=== PATIENT | female | born 1950 | race Caucasian/White ===

== ENCOUNTER 2023-04-13 21:35 | Inpatient (IN) | payer MEDICARE, MEDICAID, SELFPAY ==
[2023-04-13 22:17] VITALS: BMI 28.0
[2023-04-13 22:19] VITALS: BP 149/77; PULSE 90; RESP 18; TEMP 36.6; O2SAT 97
[2023-04-14] MEDS: Acetaminophen 325 MG TABLET 650 MG PO ×2 (00:45→22:46)
[2023-04-14] MEDS: traZODone HCL 50 MG TABLET PO ×4 (00:46→22:48)
--- NOTE | 2023-04-14 01:50 | PC.ADMIT ---
Admitted these 72 years old female patient per stretcher accompanied by ambulance staff from [facility] with presenting problem of increasing paranoia, agitation,threatening others and declining her medications for 2 months. Patient arrived in the unit at 21:55h. Pt. signed the CV and oriented to the unit, room, room mate and staff. Upon admission, Pt. is alert and oriented to person, place, time and year. Memory appears intact but lacks insight to situation. Pt is pleasant on approached and cooperative w/ admission process. Pt is sometimes hyperverbal,repetitive and perseverating on her living condition that she was evicted from her living facility. Patient skin is intact w/ some skin rashes on her back. No SOB/cough noted, Abdomen soft, non tender w/ +bowel sounds in 4 quadrants, has BM this am and no edema noted. Pt denies SI/anxiety/depression/pain and feels safe in the unit. Patient has PMHx significant for Fibromyalgia, Arthrits,Lupus,Fibrocystic disease[per pt], hypertension, hyperlipidemia and Type [address] Latasha Nunn informed of the admission w/ new orders made. Pt signed the released of information papers. Pt offered her scheduled Cephalexin and klonopin but refused it. Later she was given PRN Tylenol and Trazodone and pt took it. Pt is partially med compliant. Pt maintained on 5 mins checks for safety and has an order for hospitalist consult and Juan Stephens notified. We'll continue to monitor patient.
[2023-04-14 08:32] LABS: Alanine Aminotransferase 37 U/L (0-31); Albumin Level 3.8 g/dL (3.5-5.0); Alkaline Phosphatase 73 U/L (39-117); Anion Gap 15 (12-20); Aspartate Amino Transferase 22 U/L (5-31); Bilirubin Total 0.4 mg/dL (0.0-1.0); Blood Urea Nitrogen 20 mg/dL (9-16); Calcium 9.5 mg/dL (8.4-10.2); Carbon Dioxide 22 mmol/L (22-29); Chloride 109 mmol/L (96-108); Cholesterol 172 mg/dL; Creatinine Clr Calc Pharmacy 52.9; Estimated Glomerular Filt Rate > 60; Glucose Fasting 104 mg/dL (60-99); HDL Cholesterol 34 mg/dL; LDL Cholesterol Calculated 101 mg/dl; Potassium 3.9 mmol/L (3.3-5.1); Sodium 142 mmol/L (135-145); Total Protein 6.4 g/dL (6.5-8.0); Triglycerides 188 mg/dL
[2023-04-14 08:59] VITALS: BP 119/69; PULSE 90; RESP 18; TEMP 36.3; O2SAT 96
[2023-04-14] MEDS: lisinopriL 20 MG TABLET PO (09:01)
[2023-04-14] MEDS: Atorvastatin Calcium 20 MG TABLET PO (09:01)
--- NOTE | 2023-04-14 11:56 | P.HPPS_ITS ---
HPI Date of Service: 04/14/23 Chief Complaint: F33.2 bipolar disorder with psychotic features Sources of Information: patient interviewed, chart reviewed and crisis/core team assessment reviewed HPI Subjective Notes: Section 12B Narrative: The patient is a 72-year-old female, , currently homeless since she was evicted from her assisted living facility due to behavioral disturbances, referred from [facility] since she was referred to the emergency room after revision. According to the crisis ass essment, the patient was grossly manic with psychotic symptoms elicited by paranoia, flight of ideas disorganized thought process and psychomotor agitation. There was no other collateral information at that moment, Section 12 was issued and she was transferring to this facility for psychiatric stab ilization. According to the assessment of crisis, the patient had been very busy year and on her assisted living facility. Apparently she feels that she has an advocate to other people and she accused in the kitchen and that they were giving wrote and fruit to the residents. Later on when she was redirected she fell so paranoid that she stating her room for nearly 3 months. She had been on c ompliant with medications and according to the record she was on antidepressants in the past. Later on, she was evicted due to her progression into psychosis elicited by paranoid delusions, persecutory delusions, disorganized thought process and agitation but also she presented manic symptoms elicited by flight of ideas, grandiosity and increased energy. [facility] did not have record of prior psychiatric treatment besides of the antidepressants described before. On intake interview, the patient was cooperative she wanted to be discharged and I explained her that now she is technically homeless. She was overinclussive and paraonid against the admisnitration of her [facility]. She had flight of ideas and disorganized thought process. Even though, she denies auditory hallucinations, denies suicidal or homicidal thoughts and she was able to contract for safety in the facility. At booster, she was started on Zyprexa that we are continuing here. Medical Evaluation Reviewed: Yes [facility] Narrative: HTN HLD Diabetes type 2 Dementia Family History: Unknown Social History: The patient refused to elaborate but at this moment the patient is technically homeless since she was evicted from her assisted living facility. Substance History: Denies Trauma History: Refused to elaborate Diagnostics Vital Signs (24Hr): Vital Signs - 24 hr 04/13/23 22:19 04/14/23 08:59 Temperature 98 F 97.3 F Pulse Rate 90 90 Respiratory Rate 18 18 Blood Pressure 149/77 H 119/69 Pulse Oximetry 97 96 Oxygen Delivery Method Room Air Room Air BMI result Body Mass Index 28.0 Labs 04/14/23 08:05 Labs: Laboratory Results - last 48 hr 04/14/23 08:05 Sodium 142 Potassium 3.9 Chloride 109 H Carbon Dioxide 22 Anion Gap 15 BUN 20 H Creatinine 0.83 Estim Creat Clear Calc 52.9 Estimated GFR > 60 Fasting Glucose 104 H Calcium 9.5 Total Bilirubin 0.4 AST 22 ALT 37 H Alkaline Phosphatase 73 Total Protein 6.4 L Albumin 3.8 Triglycerides 188 Cholesterol 172 LDL Cholesterol, Calc 101 HDL Cholesterol 34 Meds/Allergies Meds Home Medications Medication Instructions Recorded Confirmed Type acetaminophen 650 mg tablet 650 mg PO Q6H PRN MILD PAIN,FEVER 04/14/23 04/14/23 History atorvastatin 20 mg tablet 20 mg PO DAILY 04/14/23 04/14/23 History calcium carbonate 500 mg calcium 500 mg PO Q4-6H PRN Heartburn 04/14/23 04/14/23 History (1,250 mg) chewable tablet cephalexin 500 mg capsule 500 mg PO BID 04/14/23 04/14/23 History clonazepam 0.5 mg tablet 0.5 mg PO BID PRN Anxiety 04/14/23 04/14/23 History diclofenac sodium 1 % topical gel 2 g topical QID 04/14/23 04/14/23 History hydroxyzine HCl 50 mg tablet 50 mg PO BEDTIME PRN Itching 04/14/23 04/14/23 History lisinopril 20 mg tablet 20 mg PO DAILY 04/14/23 04/14/23 History magnesium gluconate 27 mg 27 mg PO DAILY 04/14/23 04/14/23 History magnesium (500 mg) tablet ptlezbwy-wgl-krisa acid 0.4 1 tab PO DAILY 04/14/23 04/14/23 History mg-lycopene 300 mcg-lutein 250 mcg tablet (Cerovite Senior) olanzapine 10 mg disintegrating 10 mg PO BEDTIME 04/14/23 04/14/23 History tablet olanzapine 5 mg disintegrating 5 mg PO BID PRN Anxiety 04/14/23 04/14/23 History tablet Allergies Allergies Allergy/AdvReac Type Severity Reaction Status Date / Time No Known Allergies Allergy Verified 04/13/23 22:46 Mental Status Exam Mental Status Exam Patient Appearance: Appropriate (On hospital gowns) and Unkempt Patient Orientation: Person and Situation Level of Consciousness: Awake and Restless Patient Behavior: Suspicious and Belligerent Mood Description: Withdrawn Affect Description: Constricted Patient Cognition Impaired: Yes Ability to Follow Directions: Good Speech Pattern: Clear, Rambling and Rapid Hallucinations: None Delusions: Paranoid Ideation, Grandiose and Ideas of Reference Thought Process: Incoherent, Racing and Distracted Thought Content: positive for Nar[place], positive for Poverty of Content, positive for Loose Associations and positive for Disorganized Judgement: Poor Assessment & Plan Assessment & Plan (1) Psychosis: Status: Acute Code(s): F29 - Unspecified psychosis not due to a substance or known physiological condition Plan The patient is an elderly female with a past medical history of high blood pressure, hypercholesterolemia and diabetes with an and diagnosed psychiatric illness who was evicted from the assisted living facility since she was been accusatory, paranoid and disorganized. She was rushed to the emergency room of [facility], says by crisis and transferring to this facility for psychiatric stabilization. On admission the patient remains psychotic, paranoid with flight of ideas. Plan 1. Gather collateral information. 2. We will have to filed for Section 7 and 8 if the patient does not sign the conditional voluntary. 3. Will continue Zyprexa 10 mg p.o. q.h.s. to target psychosis and mood lability. 4. Referral to Medicine and we will follow blood work. 5. Reassessment with results Patient educated on: diagnosis Reason for continued inpatient stay Substantial Risk for: inability to function, rapid decompensation and med/psych decompensation Statement Statement: I have reviewed the history and physical and performed a pertinent examination on my patient. No changes have occurred unless specified. If the History and Physical was not performed prior to admission, the Hospitalist's service will be consulted for completing the admission physical. Time Spent With Patient Time: Total time managing care of this patient today _45___ minutes.
--- NOTE | 2023-04-14 15:35 | HO.PM.IMCN ---
History of Present Illness Data of Consult Service Date: 04/14/23 Primary Care Provider: Unknown Physician HPI Reason for consult: Admission H&P Pt is a 72-year-old female with a PMH significant for?HTN, HLD, fibromyalgia, arthritis, and lupus who is admitted to [facility] with acute psychosis with paranoia, flight ideas, and disorganized thoughts after being evicted from her assisted care facility for behavioral disturbances. Medical consult for admission H&P. Pt is seen and evaluated at bedside, eating a cookie. Pt has no acute medical complaints at this time. Review of Systems Review of Systems: Pt has no acute medical complaints at this time. Yes all other systems are reviewed and are negative PMFSH Social History Household Members: None Housing: Other Housing Other:: [facility]. Do you presently have visiting nurse or other home services: No Patient Tobacco Use Status: Never used Tobacco Smoked in Last 30 Days: No e-Cigarette/Vaping Use: Never Used Use of substances other than those prescribed or required for medical reasons: No Currently Displaying Signs/Symptoms of Drug Intoxication Withdrawal: No Any prior treatment program specific to substance use: No Have you been hit, kicked, punched, or otherwise hurt by someone within the past year? If so, by whom?: No Do you feel safe in your current relationship?: No Current Relationship Is there a partner from a previous relationship who is making you feel unsafe now?: No Are you made to feel afraid or neglected: Yes ( That they want me out of there .) Spiritual Healthcare Practices: I'M a [employer] Healthcare Practices: 'I pray Advance Directives: No Advance Directives Information Provided: No Do you have thoughts of harming others: None Do you have a plan to hurt others: No Plan Recently lost weight without trying: No Eating poorly because of decreased appetite: No Nutrition Risks: No Nutritional Risk Patient : No : No Poor oral hygiene: No service: No Sexual orientation: Straight/Heterosexual Meds Allergies Allergy/AdvReac Type Severity Reaction Status Date / Time No Known Allergies Allergy Verified 04/13/23 22:46 Active Medications: Current Medications Acetaminophen (Acetaminophen 325 Mg Tablet) 650 mg PO Q6H PRN PRN Reason: Headache/Pain Mild Scale (1-3) Last Admin: 04/14/23 00:45 Dose: 650 mg Al Hydroxide/Mg Hydroxide (Magnesium Hydrox/Alum Hydrox 30 Ml Oral.Susp) 30 ml PO Q6H PRN PRN Reason: Heartburn/Nausea Atorvastatin Calcium (Atorvastatin Calcium 20 Mg Tablet) 20 mg PO DAILY [facility] Last Admin: 04/14/23 09:01 Dose: 20 mg Calcium Carbonate (Calcium Carbonate 500 Mg Tablet) 500 mg PO Q4H PRN PRN Reason: Heartburn Cephalexin HCl (Cephalexin 500 Mg Capsule) 500 mg PO Q12H [facility] Last Admin: 04/14/23 13:12 Dose: Not Given Clonazepam (Clonazepam 0.5 Mg Tablet) 0.5 mg PO BID PRN PRN Reason: Anxiety Lisinopril (Lisinopril 20 Mg Tablet) 20 mg PO DAILY [facility]; Protocol Last Admin: 04/14/23 09:01 Dose: 20 mg Magnesium Hydroxide (Milk Of Magnesia 30 Ml Oral.Susp) 30 ml PO DAILY PRN PRN Reason: Constipation Olanzapine (Olanzapine 10 Mg Tablet) 10 mg PO BEDTIME DIANA Trazodone HCl (Trazodone Hcl 50 Mg Tablet) 50 mg PO BEDTIME MRX1 PRN PRN Reason: Insomnia Last Admin: 04/14/23 02:25 Dose: 50 mg Home Medications Medication Instructions Recorded Confirmed Last Taken Type acetaminophen 650 mg tablet 650 mg PO Q6H PRN MILD PAIN,FEVER 04/14/23 04/14/23 04/04/23 11:49 History atorvastatin 20 mg tablet 20 mg PO DAILY 04/14/23 04/14/23 04/13/23 08:36 History calcium carbonate 500 mg calcium 500 mg PO Q4-6H PRN Heartburn 04/14/23 04/14/23 03/26/23 21:56 History (1,250 mg) chewable tablet cephalexin 500 mg capsule 500 mg PO BID 04/14/23 04/14/23 Unknown History clonazepam 0.5 mg tablet 0.5 mg PO BID PRN Anxiety 04/14/23 04/14/23 04/10/23 04:08 History diclofenac sodium 1 % topical gel 2 g topical QID 04/14/23 04/14/23 Unknown History hydroxyzine HCl 50 mg tablet 50 mg PO BEDTIME PRN Itching 04/14/23 04/14/23 04/12/23 01:30 History lisinopril 20 mg tablet 20 mg PO DAILY 04/14/23 04/14/23 04/13/23 08:36 History magnesium gluconate 27 mg 27 mg PO DAILY 04/14/23 04/14/23 Unknown History magnesium (500 mg) tablet drplbklz-ofi-atpkc acid 0.4 1 tab PO DAILY 04/14/23 04/14/23 Unknown History mg-lycopene 300 mcg-lutein 250 mcg tablet (Cerovite Senior) olanzapine 10 mg disintegrating 10 mg PO BEDTIME 04/14/23 04/14/23 04/13/23 21:00 History tablet olanzapine 5 mg disintegrating 5 mg PO BID PRN Anxiety 04/14/23 04/14/23 04/02/23 History tablet 1905 Physical Exam Vital Signs and Narrative: Vital Signs: Last Vital Signs Temp 97.3 F 04/14/23 08:59 Pulse 90 04/14/23 08:59 Resp 18 04/14/23 08:59 BP 119/69 04/14/23 08:59 Pulse Ox 96 04/14/23 08:59 O2 Del Method Room Air 04/14/23 08:59 BMI result Body Mass Index 28.0 General: AOx3, no acute distress Resp: CTA bilaterally CVS: S1, S2, RRR GI: +BS, NT, no distention Skin: No rash Neuro: Cranial nerves II-XII grossly intact bilaterally. Motor grossly intact bilaterally Extremities: No edema Psych: Appropriate affect Results Labs 04/14/23 08:05 Labs: Laboratory Results - last 24 hr 04/14/23 08:05 Anion Gap 15 Estim Creat Clear Calc 52.9 Estimated GFR > 60 Fasting Glucose 104 H Calcium 9.5 Total Bilirubin 0.4 AST 22 ALT 37 H Alkaline Phosphatase 73 Total Protein 6.4 L Albumin 3.8 Triglycerides 188 Cholesterol 172 LDL Cholesterol, Calc 101 HDL Cholesterol 34 Assessment and Plan (1) Routine history and physical examination of adult: Status: Acute Plan Pt is a 72-year-old female with a PMH significant for?HTN, HLD, fibromyalgia, arthritis, and lupus who is admitted to [facility] with acute psychosis with paranoia, flight ideas, and disorganized thoughts after being evicted from her assisted care facility for behavioral disturbances. Medical consult for admission H&P. Mood disorder Plan as per psychiatry HTN Continue home meds HLD Continue home meds Lupus Pt apparently recently diagnosed, not yet on meds Should follow up outpatient with PCP to establish care Thank you for allowing us to participate in the care of this patient. Signing off at this time. Please let us know if there are any acute complaints or questions. Time Spent With Patient Time: Total time managing care of this patient today ____ minutes.
[2023-04-14 18:00] VITALS: BP 137/59; PULSE 91; RESP 16; TEMP 36.4; O2SAT 98
[2023-04-14] MEDS: OLANZapine 10 MG TABLET PO (20:59)
[2023-04-15 08:50] VITALS: BP 125/60; PULSE 77; RESP 18; TEMP 36.8; O2SAT 97
[2023-04-15] MEDS: lisinopriL 20 MG TABLET PO (08:53)
[2023-04-15] MEDS: Atorvastatin Calcium 20 MG TABLET PO (08:53)
[2023-04-15] MEDS: Acetaminophen 325 MG TABLET 650 MG PO ×2 (09:23→22:38)
[2023-04-15 18:00] VITALS: BP 108/80; PULSE 94; RESP 16; TEMP 36.3; O2SAT 97
--- NOTE | 2023-04-15 18:12 | P.PNPSI_ITS ---
Subjective Subjective Date of Service: 04/15/23 Reason For Visit: F33.2 bipolar disorder with psychotic features Interim History: Pt seen, discussed with team. Pt very engaged in discussion about concerns, precipitants to admission. Believes her [facility] attempted to set her up to evict her and now questions if she should contact her children to see if they can help or will believe her side of the story. Much grief expressed. Medication Compliance: Yes Side effects from medications: No Attending Groups: Yes Review of Systems Acute medical concerns: No Medical Review of Systems: unchanged Mental Status Exam Mental Status Exam Patient Appearance: Appropriate Patient Orientation: Person, Place and Situation Level of Consciousness: Alert Patient Behavior: Appropriate, Talkative and Good Eye Contact Mood Description: Labile Affect Description: Labile Patient Cognition Impaired: No Ability to Follow Directions: Fair Speech Pattern: Spontaneous Speech Memory Description: Episodic Impaired Hallucinations: None Delusions: Present Thought Process: Rumination Thought Content: positive for Perseveration Depressive Symptoms: Increased Anxiety Judgement: Fair Diagnostics Vital Signs (24Hr): Vital Signs - 24 hr 04/15/23 08:50 Temperature 98.3 F Pulse Rate 77 Respiratory Rate 18 Blood Pressure 125/60 Pulse Oximetry 97 Oxygen Delivery Method Room Air BMI result Body Mass Index 28.0 Labs 04/14/23 08:05 Labs: Laboratory Results - last 48 hr 04/14/23 08:05 Sodium 142 Potassium 3.9 Chloride 109 H Carbon Dioxide 22 Anion Gap 15 BUN 20 H Creatinine 0.83 Estim Creat Clear Calc 52.9 Estimated GFR > 60 Fasting Glucose 104 H Calcium 9.5 Total Bilirubin 0.4 AST 22 ALT 37 H Alkaline Phosphatase 73 Total Protein 6.4 L Albumin 3.8 Triglycerides 188 Cholesterol 172 LDL Cholesterol, Calc 101 HDL Cholesterol 34 Medications Medications Current Medications Acetaminophen (Acetaminophen 325 Mg Tablet) 650 mg PO Q6H PRN PRN Reason: Headache/Pain Mild Scale (1-3) Last Admin: 04/15/23 09:23 Dose: 650 mg Al Hydroxide/Mg Hydroxide (Magnesium Hydrox/Alum Hydrox 30 Ml Oral.Susp) 30 ml PO Q6H PRN PRN Reason: Heartburn/Nausea Atorvastatin Calcium (Atorvastatin Calcium 20 Mg Tablet) 20 mg PO DAILY DIANA Last Admin: 04/15/23 08:53 Dose: 20 mg Calcium Carbonate (Calcium Carbonate 500 Mg Tablet) 500 mg PO Q4H PRN PRN Reason: Heartburn Clonazepam (Clonazepam 0.5 Mg Tablet) 0.5 mg PO BID PRN PRN Reason: Anxiety Lisinopril (Lisinopril 20 Mg Tablet) 20 mg PO DAILY D[facility]; Protocol Last Admin: 04/15/23 08:53 Dose: 20 mg Magnesium Hydroxide (Milk Of Magnesia 30 Ml Oral.Susp) 30 ml PO DAILY PRN PRN Reason: Constipation Olanzapine (Olanzapine 10 Mg Tablet) 10 mg PO BEDTIME DIANA Last Admin: 04/14/23 20:59 Dose: 10 mg Trazodone HCl (Trazodone Hcl 50 Mg Tablet) 50 mg PO BEDTIME MRX1 PRN PRN Reason: Insomnia Last Admin: 04/14/23 22:48 Dose: 50 mg Allergies Allergies Allergy/AdvReac Type Severity Reaction Status Date / Time No Known Allergies Allergy Verified 04/13/23 22:46 Assessment & Plan Assessment & Plan (1) Psychosis: Status: Acute Code(s): F29 - Unspecified psychosis not due to a substance or known physiological condi tion Assessment and Plan: 04/15/23 Continue current regime and plan of care Plan Pt is a 72-year-old female with a PMH significant for?HTN, HLD, fibromyalgia, arthritis, and lupus who is admitted to [facility] with acute psychosis with paranoia, flight ideas, and disorganized thoughts after being evicted from her assisted care facility for behavioral disturbances. Medical consult for admission H&P. Mood disorder Plan as per psychiatry HTN Continue home meds HLD Continue home meds Lupus Pt apparently recently diagnosed, not yet on meds Should follow up outpatient with PCP to establish care Thank you for allowing us to participate in the care of this patient. Signing off at this time. Please let us know if there are any acute complaints or questions. Informed Consent: further education needed Reason for continued inpatient stay Substantial Risk for: rapid decompensation Time Spent With Patient Time: Total time managing care of this patient today ____ minutes.
[2023-04-15] MEDS: traZODone HCL 50 MG TABLET PO ×2 (22:40→23:20)
[2023-04-15] MEDS: OLANZapine 10 MG TABLET PO (22:40)
[2023-04-16 08:05] VITALS: BP 122/58; PULSE 89; RESP 18; TEMP 36.6; O2SAT 96
[2023-04-16] MEDS: Atorvastatin Calcium 20 MG TABLET PO (08:06)
[2023-04-16] MEDS: lisinopriL 20 MG TABLET PO (08:07)
[2023-04-16] MEDS: Acetaminophen 325 MG TABLET 650 MG PO ×2 (12:54→21:54)
--- NOTE | 2023-04-16 13:49 | P.PNPSI_ITS ---
Subjective Subjective Date of Service: 04/16/23 Reason For Visit: F33.2 bipolar disorder with psychotic features Interim History: Pt seen in [facility]. Reivewed with team who report pt continues to question her admission, removal from her [facility] and having several questions regarding her rights/responsiblities during in pt care. Requests diclofenac topical for pain. Pharmacy will substitute Aspercreme. Pt in [facility] talking with room-mate about her situation as room-mate faces somethig similiar. Utilizing the walker appropriately to prevent a fall with understanding of body mechanics to use this properly. Medication Compliance: Yes Side effects from medications: No Attending Groups: Yes Review of Systems Acute medical concerns: No Medical Review of Systems: unchanged Mental Status Exam Mental Status Exam Patient Appearance: Appropriate Patient Orientation: Person, Place and Situation Level of Consciousness: Alert Patient Behavior: Appropriate, Talkative and Good Eye Contact Mood Description: Labile Affect Description: Labile Patient Cognition Impaired: No Ability to Follow Directions: Fair Speech Pattern: Spontaneous Speech Memory Description: Episodic Impaired Hallucinations: None Delusions: Present Thought Process: Rumination Thought Content: positive for Perseveration Depressive Symptoms: Increased Anxiety Judgement: Fair Diagnostics Vital Signs (24Hr): Vital Signs - 24 hr 04/15/23 18:00 04/16/23 08:05 Temperature 97.3 F 97.9 F Pulse Rate 94 89 Respiratory Rate 16 18 Blood Pressure 108/80 122/58 L Pulse Oximetry 97 96 Oxygen Delivery Method Room Air Room Air BMI result Body Mass Index 28.0 Labs 04/14/23 08:05 Medications Medications Current Medications Acetaminophen (Acetaminophen 325 Mg Tablet) 650 mg PO Q6H PRN PRN Reason: Headache/Pain Mild Scale (1-3) Last Admin: 04/16/23 12:54 Dose: 650 mg Al Hydroxide/Mg Hydroxide (Magnesium Hydrox/Alum Hydrox 30 Ml Oral.Susp) 30 ml PO Q6H PRN PRN Reason: Heartburn/Nausea Atorvastatin Calcium (Atorvastatin Calcium 20 Mg Tablet) 20 mg PO DAILY [facility] Last Admin: 04/16/23 08:06 Dose: 20 mg Calcium Carbonate (Calcium Carbonate 500 Mg Tablet) 500 mg PO Q4H PRN PRN Reason: Heartburn Clonazepam (Clonazepam 0.5 Mg Tablet) 0.5 mg PO BID PRN PRN Reason: Anxiety Lisinopril (Lisinopril 20 Mg Tablet) 20 mg PO DAILY [facility]; Protocol Last Admin: 04/16/23 08:07 Dose: 20 mg Magnesium Hydroxide (Milk Of Magnesia 30 Ml Oral.Susp) 30 ml PO DAILY PRN PRN Reason: Constipation Olanzapine (Olanzapine 10 Mg Tablet) 10 mg PO BEDTIME DIANA Last Admin: 04/15/23 22:40 Dose: 10 mg Trazodone HCl (Trazodone Hcl 50 Mg Tablet) 50 mg PO BEDTIME MRX1 PRN PRN Reason: Insomnia Last Admin: 04/15/23 23:20 Dose: 50 mg Trolamine Salicylate (Trolamine Salicylate 10 % Cream 85 Gm Tube) 1 appl TOPICAL QID PRN PRN Reason: Pain, Mild (Pain Scale 1-3) Allergies Allergies Allergy/AdvReac Type Severity Reaction Status Date / Time No Known Allergies Allergy Verified 04/13/23 22:46 Assessment & Plan Assessment & Plan (1) Psychosis: Status: Acute Code(s): F29 - Unspecified psychosis not due to a substance or known physiological condition Assessment and Plan: 04/15/23 Continue current regime and plan of care 04/16/23 Continue current regime and plan of care Plan Pt is a 72-year-old female with a PMH significant for?HTN, HLD, fibromyalgia, arthritis, and lupus who is admitted to [facility] for [facility] with acute psychosis with paranoia, flight ideas, and disorganized thoughts after being evicted from her assisted care facility for behavioral disturbances. Medical consult for admission H&P. Mood disorder Plan as per psychiatry HTN Continue home meds HLD Continue home meds Lupus Pt apparently recently diagnosed, not yet on meds Should follow up outpatient with PCP to establish care Thank you for allowing us to participate in the care of this patient. Signing off at this time. Please let us know if there are any acute complaints or questions. Informed Consent: understands Reason for continued inpatient stay Substantial Risk for: rapid decompensation Time Spent With Patient Time: Total time managing care of this patient today ____ minutes.
[2023-04-16 18:00] VITALS: BP 125/61; PULSE 85; RESP 18; TEMP 35.9; O2SAT 98
[2023-04-16] MEDS: OLANZapine 10 MG TABLET PO (21:50)
[2023-04-16] MEDS: traZODone HCL 50 MG TABLET PO (21:54)
[2023-04-17] MEDS: lisinopriL 20 MG TABLET PO (10:43)
[2023-04-17] MEDS: Atorvastatin Calcium 20 MG TABLET PO (10:43)
[2023-04-17] MEDS: Trolamine Salicylate 10 % Cream 85 GM TUBE 1 APPL TOPICAL ×3 (10:44→22:04)
[2023-04-17 10:47] VITALS: BP 129/59; PULSE 90; RESP 16; TEMP 36.5; O2SAT 97
[2023-04-17] MEDS: Acetaminophen 325 MG TABLET 650 MG PO ×2 (12:12→18:18)
--- NOTE | 2023-04-17 14:59 | P.PNPSI_ITS ---
Subjective Subjective Date of Service: 04/17/23 Reason For Visit: F33.2 bipolar disorder with psychotic features Subjective Notes: Conditional Voluntary Interim History: The nursing staff reported the patient had been compliant with treatment, he had been cooperative with pressured speech. The director social welfare reported the since she is technically homeless were going to start looking for proper placement. On interview the patient denies new symptoms she still with pressure speech, hyper inclusive hypomanic but easily redirectable. She is very aware of her veronica elessness and she is willing to work with the director social welfare. Mental Status Exam Mental Status Exam Patient Appearance: Well Grooomed and Appropriate Patient Orientation: Person and Situation Level of Consciousness: Alert Patient Behavior: Cooperative Mood Description: Calm Affect Description: Constricted Patient Cognition Impaired: Yes Ability to Follow Directions: Good Speech Pattern: Clear Hallucinations: None Delusions: Not Present Thought Content: positive for Racing, positive for [place], positive for Poverty of Content and positive for Loose Associations Judgement: Poor Diagnostics Vital Signs (24Hr): Vital Signs - 24 hr 04/16/23 18:00 04/17/23 10:47 Temperature 96.6 F L 97.7 F Pulse Rate 85 90 Respiratory Rate 18 16 Blood Pressure 125/61 129/59 L Pulse Oximetry 98 97 Oxygen Delivery Method Room Air Room Air BMI result Body Mass Index 28.0 Labs 04/14/23 08:05 Medications Medications Current Medications Acetaminophen (Acetaminophen 325 Mg Tablet) 650 mg PO Q6H PRN PRN Reason: Headache/Pain Mild Scale (1-3) Last Admin: 04/17/23 12:12 Dose: 650 mg Al Hydroxide/Mg Hydroxide (Magnesium Hydrox/Alum Hydrox 30 Ml Oral.Susp) 30 ml PO Q6H PRN PRN Reason: Heartburn/Nausea Atorvastatin Calcium (Atorvastatin Calcium 20 Mg Tablet) 20 mg PO DAILY [facility] Last Admin: 04/17/23 10:43 Dose: 20 mg Calcium Carbonate (Calcium Carbonate 500 Mg Tablet) 500 mg PO Q4H PRN PRN Reason: Heartburn Clonazepam (Clonazepam 0.5 Mg Tablet) 0.5 mg PO BID PRN PRN Reason: Anxiety Lisinopril (Lisinopril 20 Mg Tablet) 20 mg PO DAILY [facility]; Protocol Last Admin: 04/17/23 10:43 Dose: 20 mg Magnesium Hydroxide (Milk Of Magnesia 30 Ml Oral.Susp) 30 ml PO DAILY PRN PRN Reason: Constipation Olanzapine (Olanzapine 10 Mg Tablet) 10 mg PO BEDTIME [facility] Last Admin: 04/16/23 21:50 Dose: 10 mg Trazodone HCl (Trazodone Hcl 50 Mg Tablet) 50 mg PO BEDTIME MRX1 PRN PRN Reason: Insomnia Last Admin: 04/16/23 21:54 Dose: 50 mg Trolamine Salicylate (Trolamine Salicylate 10 % Cream 85 Gm Tube) 1 appl TOPICAL QID PRN PRN Reason: Pain, Mild (Pain Scale 1-3) Last Admin: 04/17/23 10:44 Dose: 1 appl Allergies Allergies Allergy/AdvReac Type Severity Reaction Status Date / Time No Known Allergies Allergy Verified 04/13/23 22:46 Assessment & Plan Assessment & Plan (1) Psychosis: Status: Acute Code(s): F29 - Unspecified psychosis not due to a substance or known physiological condition Assessment and Plan: 04/15/23 Continue current regime and plan of care 04/16/23 Continue current regime and plan of care Plan Pt is a 72-year-old female with a PMH significant for?HTN, HLD, fibromyalgia, arthritis, and lupus who is admitted to [facility] for [facility] with acute psychosis with paranoia, flight ideas, and disorganized thoughts after being evicted from her assisted care facility for behavioral disturbances. Medical consult for admission H&P. Mood disorder Plan as per psychiatry HTN Continue home meds HLD Continue home meds Lupus Pt apparently recently diagnosed, not yet on meds Should follow up outpatient with PCP to establish care Plan 1. Gather collateral information. 2. Continue with same treatment. 3. We are going to try to find proper placement for her since she has lost her assisted living facility Reason for continued inpatient stay Substantial Risk for: inability to function, rapid decompensation and med/psych decompensation Time Spent With Patient Time: Total time managing care of this patient today _20___ minutes.
[2023-04-17 18:00] VITALS: BP 128/75; PULSE 89; TEMP 35.9; O2SAT 97
[2023-04-17] MEDS: OLANZapine 10 MG TABLET PO (22:04)
[2023-04-17] MEDS: traZODone HCL 50 MG TABLET PO ×2 (22:05→23:20)
[2023-04-18] MEDS: Acetaminophen 325 MG TABLET 650 MG PO ×3 (00:02→23:17)
[2023-04-18 08:28] VITALS: BP 143/65; PULSE 71; RESP 18; TEMP 36.3; O2SAT 98
[2023-04-18] MEDS: lisinopriL 20 MG TABLET PO (08:36)
[2023-04-18] MEDS: Atorvastatin Calcium 20 MG TABLET PO (08:36)
--- NOTE | 2023-04-18 13:49 | P.PNPSI_ITS ---
Subjective Subjective Date of Service: 04/18/23 Reason For Visit: F33.2 bipolar disorder with psychotic features Subjective Notes: Conditional Voluntary Interim History: The nursing staff reported the patient had been hyperverbal, perseverative. She remains with persecutory delusions stating that the staff at assisted living facility was targeting her. Even though she had been compliant with medications she took trazodone x2. The social media content manager has applied for [facility]. On interview the patient remains perseverative grandiose at times, no side effects or sedation with Zyprexa. Mental Status Exam Mental Status Exam Patient Appearance: Well Grooomed and Appropriate Patient Orientation: Person and Situation Level of Consciousness: Awake and Appropriate Patient Behavior: Guarded and Restless Mood Description: Hostile and Angry Affect Description: Constricted Patient Cognition Impaired: Yes Ability to Follow Directions: Good Speech Pattern: Clear Hallucinations: None Delusions: Not Present Thought Process: Racing Thought Content: positive for [place] and positive for Perseveration Judgement: Poor Diagnostics Vital Signs (24Hr): Vital Signs - 24 hr 04/17/23 18:00 04/18/23 08:28 Temperature 96.7 F L 97.3 F Pulse Rate 89 71 Respiratory Rate 18 Blood Pressure 128/75 143/65 H Pulse Oximetry 97 98 Oxygen Delivery Method Room Air Room Air BMI result Body Mass Index 28.0 Labs 04/14/23 08:05 Medications Medications Current Medications Acetaminophen (Acetaminophen 325 Mg Tablet) 650 mg PO Q6H PRN PRN Reason: Headache/Pain Mild Scale (1-3) Last Admin: 04/18/23 00:02 Dose: 650 mg Al Hydroxide/Mg Hydroxide (Magnesium Hydrox/Alum Hydrox 30 Ml Oral.Susp) 30 ml PO Q6H PRN PRN Reason: Heartburn/Nausea Atorvastatin Calcium (Atorvastatin Calcium 20 Mg Tablet) 20 mg PO DAILY [facility] Last Admin: 04/18/23 08:36 Dose: 20 mg Calcium Carbonate (Calcium Carbonate 500 Mg Tablet) 500 mg PO Q4H PRN PRN Reason: Heartburn Clonazepam (Clonazepam 0.5 Mg Tablet) 0.5 mg PO BID PRN PRN Reason: Anxiety Lisinopril (Lisinopril 20 Mg Tablet) 20 mg PO DAILY [facility]; Protocol Last Admin: 04/18/23 08:36 Dose: 20 mg Magnesium Hydroxide (Milk Of Magnesia 30 Ml Oral.Susp) 30 ml PO DAILY PRN PRN Reason: Constipation Olanzapine (Olanzapine 10 Mg Tablet) 10 mg PO BEDTIME [facility] Last Admin: 04/17/23 22:04 Dose: 10 mg Trazodone HCl (Trazodone Hcl 50 Mg Tablet) 50 mg PO BEDTIME MRX1 PRN PRN Reason: Insomnia Last Admin: 04/17/23 23:20 Dose: 50 mg Trolamine Salicylate (Trolamine Salicylate 10 % Cream 85 Gm Tube) 1 appl TOPICAL QID PRN PRN Reason: Pain, Mild (Pain Scale 1-3) Last Admin: 04/17/23 22:04 Dose: 1 appl Allergies Allergies Allergy/AdvReac Type Severity Reaction Status Date / Time No Known Allergies Allergy Verified 04/13/23 22:46 Assessment & Plan Assessment & Plan (1) Psychosis: Status: Acute Code(s): F29 - Unspecified psychosis not due to a substance or known physiological condition Assessment and Plan: 04/15/23 Continue current regime and plan of care 04/16/23 Continue current regime and plan of care Plan Pt is a 72-year-old female with a PMH significant for?HTN, HLD, fibromyalgia, arthritis, and lupus who is admitted to [facility] for [facility] with acute psych osis with paranoia, flight ideas, and disorganized thoughts after being evicted from her assisted care facility for behavioral disturbances. Medical consult for admission H&P. Mood disorder Plan as per psychiatry HTN Continue home meds HLD Continue home meds Lupus Pt apparently recently diagnosed, not yet on meds Should follow up outpatient with PCP to establish care Plan 1. Gather collateral information. 2. Continue with same treatment. 3. We are going to try to find proper placement for her since she has lost her assisted living facility Reason for continued inpatient stay Substantial Risk for: inability to function, rapid decompensation and med/psych decompensation Time Spent With Patient Time: Total time managing care of this patient today __20__ minutes.
[2023-04-18 18:00] VITALS: BP 148/68; PULSE 82; TEMP 36.4; O2SAT 97
[2023-04-18] MEDS: OLANZapine 10 MG TABLET PO (20:52)
[2023-04-18] MEDS: traZODone HCL 50 MG TABLET PO (23:17)
[2023-04-19 07:15] VITALS: BP 135/62; PULSE 70; RESP 16; TEMP 36.3; O2SAT 95
[2023-04-19] MEDS: Atorvastatin Calcium 20 MG TABLET PO (08:54)
[2023-04-19] MEDS: lisinopriL 20 MG TABLET PO (08:54)
[2023-04-19] MEDS: Acetaminophen 325 MG TABLET 650 MG PO ×2 (08:59→21:52)
--- NOTE | 2023-04-19 11:24 | P.PNPSI_ITS ---
Subjective Subjective Date of Service: 04/19/23 Reason For Visit: F33.2 bipolar disorder with psychotic features Subjective Notes: Conditional Voluntary Interim History: The nursing staff reported the patient had been delusional hyperverbal but less perseverative than before. She had been compliant with medications but she stated that she does not want to take Zyprexa any psychotropics. The occupational therapist reported that she score 5.0 on the [place] test and 22/30 on the [place] so she has some mild cognitive impairment. She is aware of these deficit. On interview the patient denies new symptoms, she is working with the vp digital marketing social media and crm for a proper disposition. Mental Status Exam Mental Status Exam Patient Appearance: Well Grooomed and Appropriate Patient Orientation: Person and Situation Level of Consciousness: Awake and Appropriate Patient Behavior: Guarded and Passive Mood Description: Withdrawn Affect Description: Constricted Patient Cognition Impaired: Yes Ability to Follow Directions: Good Speech Pattern: Rapid and Pressured Hallucinations: None Delusions: Paranoid Ideation Thought Process: Racing Thought Content: positive for Loose Associations and positive for Tangential Judgement: Poor Diagnostics Vital Signs (24Hr): Vital Signs - 24 hr 04/18/23 18:00 04/19/23 07:15 Temperature 97.5 F 97.4 F Pulse Rate 82 70 Respiratory Rate 16 Blood Pressure 148/68 H 135/62 Pulse Oximetry 97 95 Oxygen Delivery Method Room Air Room Air BMI result Body Mass Index 28.0 Labs 04/14/23 08:05 Medications Medications Current Medications Acetaminophen (Acetaminophen 325 Mg Tablet) 650 mg PO Q6H PRN PRN Reason: Headache/Pain Mild Scale (1-3) Last Admin: 04/19/23 08:59 Dose: 650 mg Al Hydroxide/Mg Hydroxide (Magnesium Hydrox/Alum Hydrox 30 Ml Oral.Susp) 30 ml PO Q6H PRN PRN Reason: Heartburn/Nausea Atorvastatin Calcium (Atorvastatin Calcium 20 Mg Tablet) 20 mg PO DAILY [facility] Last Admin: 04/19/23 08:54 Dose: 20 mg Calcium Carbonate (Calcium Carbonate 500 Mg Tablet) 500 mg PO Q4H PRN PRN Reason: Heartburn Clonazepam (Clonazepam 0.5 Mg Tablet) 0.5 mg PO BID PRN PRN Reason: Anxiety Lisinopril (Lisinopril 20 Mg Tablet) 20 mg PO DAILY [facility]; Protocol Last Admin: 04/19/23 08:54 Dose: 20 mg Magnesium Hydroxide (Milk Of Magnesia 30 Ml Oral.Susp) 30 ml PO DAILY PRN PRN Reason: Constipation Olanzapine (Olanzapine 10 Mg Tablet) 10 mg PO BEDTIME [facility] Last Admin: 04/18/23 20:52 Dose: 10 mg Trazodone HCl (Trazodone Hcl 50 Mg Tablet) 50 mg PO BEDTIME MRX1 PRN PRN Reason: Insomnia Last Admin: 04/18/23 23:17 Dose: 50 mg Trolamine Salicylate (Trolamine Salicylate 10 % Cream 85 Gm Tube) 1 appl TOPICAL QID PRN PRN Reason: Pain, Mild (Pain Scale 1-3) Last Admin: 04/17/23 22:04 Dose: 1 appl Allergies Allergies Allergy/AdvReac Type Severity Reaction Status Date / Time No Known Allergies Allergy Verified 04/13/23 22:46 Assessment & Plan Assessment & Plan (1) Psychosis: Status: Acute Code(s): F29 - Unspecified psychosis not due to a substance or known physiological condition Assessment and Plan: 04/15/23 Continue current regime and plan of care 04/16/23 Continue current regime and plan of care Plan Pt is a 72-year-old female with a PMH significant for?HTN, HLD, fibromyalgia, arthritis, and lupus who is admitted to [facility] for [facility] with acute psychosis with paranoia, flight ideas, and disorganized thoughts after being evicted from her assisted care facility for behavioral disturbances. Medical consult for admission H&P. Mood disorder Plan as per psychiatry HTN Continue home meds HLD Continue home meds Lupus Pt apparently recently diagnosed, not yet on meds Should follow up outpatient with PCP to establish care Plan 1. Gather collateral information. 2. Continue with same treatment. 3. We are going to try to find proper placement for her since she has lost her assisted living facility Reason for continued inpatient stay Substantial Risk for: inability to function, rapid decompensation and med/psych decompensation Time Spent With Patient Time: Total time managing care of this patient today __20__ minutes.
[2023-04-19] MEDS: Trolamine Salicylate 10 % Cream 85 GM TUBE 1 APPL TOPICAL (21:51)
[2023-04-19] MEDS: OLANZapine 10 MG TABLET PO (21:52)
[2023-04-19] MEDS: traZODone HCL 50 MG TABLET PO ×2 (21:52→23:36)
[2023-04-20 07:00] VITALS: BMI 28.3
[2023-04-20 08:32] VITALS: BP 130/64; PULSE 97; RESP 16; TEMP 36.3; O2SAT 96
[2023-04-20] MEDS: lisinopriL 20 MG TABLET PO (08:33)
[2023-04-20] MEDS: Atorvastatin Calcium 20 MG TABLET PO (08:33)
[2023-04-20] MEDS: Acetaminophen 325 MG TABLET 650 MG PO ×2 (13:12→20:14)
--- NOTE | 2023-04-20 13:20 | P.PNPSI_ITS ---
Subjective Subjective Date of Service: 04/20/23 Reason For Visit: F33.2 bipolar disorder with psychotic features Subjective Notes: Conditional Voluntary Interim History: The nursing staff reported the patient had been concern about her housing. She denies anxiety or depression she remains mildly hypomanic but easily redirectable. She has been compliant with medications and meals. Yesterday she complained of pain and took some Tylenol with some improvement. The psychiatric social worker reported that she was referred to the assisted living facility in [place] [facility]. On interview the patient denies new symptoms still mildly hypomanic but easily redirectable. Mental Status Exam Mental Status Exam Patient Appearance: Well Grooomed and Appropriate Patient Orientation: Person and Situation Level of Consciousness: Awake and Appropriate Patient Behavior: Guarded and Passive Mood Description: Calm Affect Description: Constricted Patient Cognition Impaired: Yes Ability to Follow Directions: Good Speech Pattern: Clear Hallucinations: None Delusions: Not Present Thought Process: Racing Thought Content: positive for [place] and positive for Perseveration Judgement: Fair Diagnostics Vital Signs (24Hr): Vital Signs - 24 hr 04/20/23 08:32 Temperature 97.3 F Pulse Rate 97 Respiratory Rate 16 Blood Pressure 130/64 Pulse Oximetry 96 Oxygen Delivery Method Room Air BMI result Body Mass Index 28.3 Labs 04/14/23 08:05 Medications Medications Current Medications Acetaminophen (Acetaminophen 325 Mg Tablet) 650 mg PO Q6H PRN PRN Reason: Headache/Pain Mild Scale (1-3) Last Admin: 04/20/23 13:12 Dose: 650 mg Al Hydroxide/Mg Hydroxide (Magnesium Hydrox/Alum Hydrox 30 Ml Oral.Susp) 30 ml PO Q6H PRN PRN Reason: Heartburn/Nausea Atorvastatin Calcium (Atorvastatin Calcium 20 Mg Tablet) 20 mg PO DAILY [facility] Last Admin: 04/20/23 08:33 Dose: 20 mg Calcium Carbonate (Calcium Carbonate 500 Mg Tablet) 500 mg PO Q4H PRN PRN Reason: Heartburn Clonazepam (Clonazepam 0.5 Mg Tablet) 0.5 mg PO BID PRN PRN Reason: Anxiety Lisinopril (Lisinopril 20 Mg Tablet) 20 mg PO DAILY [facility]; Protocol Last Admin: 04/20/23 08:33 Dose: 20 mg Magnesium Hydroxide (Milk Of Magnesia 30 Ml Oral.Susp) 30 ml PO DAILY PRN PRN Reason: Constipation Olanzapine (Olanzapine 10 Mg Tablet) 10 mg PO BEDTIME [facility] Last Admin: 04/19/23 21:52 Dose: 10 mg Trazodone HCl (Trazodone Hcl 50 Mg Tablet) 50 mg PO BEDTIME MRX1 PRN PRN Reason: Insomnia Last Admin: 04/19/23 23:36 Dose: 50 mg Trolamine Salicylate (Trolamine Salicylate 10 % Cream 85 Gm Tube) 1 appl TOPICAL QID PRN PRN Reason: Pain, Mild (Pain Scale 1-3) Last Admin: 04/19/23 21:51 Dose: 1 appl Allergies Allergies Allergy/AdvReac Type Severity Reaction Status Date / Time No Known Allergies Allergy Verified 04/13/23 22:46 Assessment & Plan Assessment & Plan (1) Psychosis: Status: Acute Code(s): F29 - Unspecified psychosis not due to a substance or known physiological condition Assessment and Plan: 04/15/23 Continue current regime and plan of care 04/16/23 Continue current regime and plan of care Plan Pt is a 72-year-old female with a PMH significant for?HTN, HLD, fibromyalgia, arthritis, and lupus who is admitted to [facility] for [facility]even with acute psychosis with paranoia, flight ideas, and disorganized thoughts after being evicted from her assisted care facility for behavioral disturbances. Medical consult for admission H&P. Mood disorder Plan as per psychiatry HTN Continue home meds HLD Continue home meds Lupus Pt apparently recently diagnosed, not yet on meds Should follow up outpatient with PCP to establish care Plan 1. Gather collateral information. 2. Continue with same treatment. 3. We are going to try to find proper placement for her since she has lost her assisted living facility Reason for continued inpatient stay Substantial Risk for: inability to function, rapid decompensation and med/psych decompensation Time Spent With Patient Time: Total time managing care of this patient today __20__ minutes.
[2023-04-20 18:00] VITALS: BP 136/65; PULSE 84; RESP 18; TEMP 36.4; O2SAT 96
[2023-04-20] MEDS: OLANZapine 10 MG TABLET PO (20:14)
[2023-04-21 08:10] VITALS: BP 130/61; PULSE 90; RESP 18; TEMP 36.5; O2SAT 97
[2023-04-21] MEDS: lisinopriL 20 MG TABLET PO (08:32)
[2023-04-21] MEDS: Atorvastatin Calcium 20 MG TABLET PO (08:32)
--- NOTE | 2023-04-21 13:27 | HO.PSYCHPN ---
Subjective Subjective Date of Service: 04/21/23 Reason For Visit: F33.2 bipolar disorder with psychotic features Subjective Notes: Conditional Voluntary Interim History: The nursing staff reported the patient had been sad since her roommate was discharged yesterday. She slept 8 hours and she had been perseverative grandiose but easily redirectable. The school social worker reported that she was very upset that we are not looking for placement in a private apartment. On interview the patient denies new symptoms still perseverative grandiose but no safety concerns to self or others. Mental Status Exam Mental Status Exam Patient Appearance: Well Grooomed and Appropriate Patient Orientation: Person and Situation Level of Consciousness: Awake and Appropriate Patient Behavior: Talkative and Belligerent Mood Description: Elated Affect Description: Labile Patient Cognition Impaired: Yes Ability to Follow Directions: Good Speech Pattern: Clear Hallucinations: None Delusions: Grandiose and Ideas of Reference Thought Process: Distracted and Evasive Thought Content: positive for Perseveration Judgement: Poor Diagnostics Vital Signs (24Hr): Vital Signs - 24 hr 04/20/23 18:00 04/21/23 08:10 Temperature 97.5 F 97.7 F Pulse Rate 84 90 Respiratory Rate 18 18 Blood Pressure 136/65 130/61 Pulse Oximetry 96 97 Oxygen Delivery Method Room Air Room Air BMI result Body Mass Index 28.3 Labs 04/14/23 08:05 Medications Medications Current Medications Acetaminophen (Acetaminophen 325 Mg Tablet) 650 mg PO Q6H PRN PRN Reason: Headache/Pain Mild Scale (1-3) Last Admin: 04/20/23 20:14 Dose: 650 mg Al Hydroxide/Mg Hydroxide (Magnesium Hydrox/Alum Hydrox 30 Ml Oral.Susp) 30 ml PO Q6H PRN PRN Reason: Heartburn/Nausea Atorvastatin Calcium (Atorvastatin Calcium 20 Mg Tablet) 20 mg PO DAILY [facility] Last Admin: 04/21/23 08:32 Dose: 20 mg Calcium Carbonate (Calcium Carbonate 500 Mg Tablet) 500 mg PO Q4H PRN PRN Reason: Heartburn Clonazepam (Clonazepam 0.5 Mg Tablet) 0.5 mg PO BID PRN PRN Reason: Anxiety Lisinopril (Lisinopril 20 Mg Tablet) 20 mg PO DAILY [facility]; Protocol Last Admin: 04/21/23 08:32 Dose: 20 mg Magnesium Hydroxide (Milk Of Magnesia 30 Ml Oral.Susp) 30 ml PO DAILY PRN PRN Reason: Constipation Olanzapine (Olanzapine 10 Mg Tablet) 10 mg PO BEDTIME [facility] Last Admin: 04/20/23 20:14 Dose: 10 mg Trazodone HCl (Trazodone Hcl 50 Mg Tablet) 50 mg PO BEDTIME MRX1 PRN PRN Reason: Insomnia Last Admin: 04/19/23 23:36 Dose: 50 mg Trolamine Salicylate (Trolamine Salicylate 10 % Cream 85 Gm Tube) 1 appl TOPICAL QID PRN PRN Reason: Pain, Mild (Pain Scale 1-3) Last Admin: 04/19/23 21:51 Dose: 1 appl Allergies Allergies Allergy/AdvReac Type Severity Reaction Status Date / Time No Known Allergies Allergy Verified 04/13/23 22:46 Assessment & Plan Assessment & Plan (1) Psychosis: Status: Acute Code(s): F29 - Unspecified psychosis not due to a substance or known physiological condition Assessment and Plan: 04/15/23 Continue current regime and plan of care 04/16/23 Continue current regime and plan of care Plan Pt is a 72-year-old female with a PMH significant for?HTN, HLD, fibromyalgia, arthritis, and lupus who is admitted to [facility] for [facility] with acute psychosis with paranoia, flight ideas, and disorganized thoughts after being evicted from her assisted care facility for behavioral disturbances. Medical consult for admission H&P. Mood disorder Plan as per psychiatry HTN Continue home meds HLD Continue home meds Lupus Pt apparently recently diagnosed, not yet on meds Should follow up outpatient with PCP to establish care Plan 1. Gather collateral information. 2. Continue with same treatment. 3. We are going to try to find proper placement for her since she has lost her assisted living facility Reason for continued inpatient stay Substantial Risk for: inability to function, rapid decompensation and med/psych decompensation Time Spent With Patient Time: Total time managing care of this patient today __20__ minutes.
[2023-04-21 18:00] VITALS: BP 130/72; PULSE 88; RESP 18; TEMP -8.8; TEMP 16; O2SAT 97
[2023-04-21] MEDS: Acetaminophen 325 MG TABLET 650 MG PO (21:30)
[2023-04-21] MEDS: OLANZapine 10 MG TABLET PO (21:30)
[2023-04-21] MEDS: traZODone HCL 50 MG TABLET PO (21:30)
[2023-04-22 08:19] VITALS: BP 137/65; PULSE 86; RESP 18; TEMP 36.2; O2SAT 95
[2023-04-22] MEDS: Atorvastatin Calcium 20 MG TABLET PO (08:20)
[2023-04-22] MEDS: lisinopriL 20 MG TABLET PO (08:20)
--- NOTE | 2023-04-22 08:20 | P.PNPSI_ITS ---
Subjective Subjective Date of Service: 04/22/23 Reason For Visit: F33.2 bipolar disorder with psychotic features Subjective Notes: Conditional Voluntary Interim History: The nursing staff reported the patient had being paranoid grandiose about her homelessness, she slept well last night. On interview the patient remains perseverative about the reasons why she is here. No changes in her mental status. She was asking for the social media analyst and she wants to see the chart of the other hospital. Mental Status Exam Mental Status Exam Patient Appearance: Appropriate Patient Orientation: Person and Situation Level of Consciousness: Awake Patient Behavior: Guarded Mood Description: Constricted Affect Description: Labile Patient Cognition Impaired: Yes Ability to Follow Directions: Good Speech Pattern: Spontaneous Speech and Rapid Hallucinations: None Delusions: Paranoid Ideation and Grandiose Thought Process: Racing, Distracted and Evasive Thought Content: positive for [place] and positive for [place] of Content Judgement: Fair Diagnostics Vital Signs (24Hr): Vital Signs - 24 hr 04/21/23 18:00 04/22/23 08:19 Temperature 16 F L 97.2 F Pulse Rate 88 86 Respiratory Rate 18 18 Blood Pressure 130/72 137/65 Pulse Oximetry 97 95 Oxygen Delivery Method Room Air Room Air BMI result Body Mass Index 28.3 Labs 04/14/23 08:05 Medications Medications Current Medications Acetaminophen (Acetaminophen 325 Mg Tablet) 650 mg PO Q6H PRN PRN Reason: Headache/Pain Mild Scale (1-3) Last Admin: 04/21/23 21:30 Dose: 650 mg Al Hydroxide/Mg Hydroxide (Magnesium Hydrox/Alum Hydrox 30 Ml Oral.Susp) 30 ml PO Q6H PRN PRN Reason: Heartburn/Nausea Atorvastatin Calcium (Atorvastatin Calcium 20 Mg Tablet) 20 mg PO DAILY [facility] Last Admin: 04/21/23 08:32 Dose: 20 mg Calcium Carbonate (Calcium Carbonate 500 Mg Tablet) 500 mg PO Q4H PRN PRN Reason: Heartburn Clonazepam (Clonazepam 0.5 Mg Tablet) 0.5 mg PO BID PRN PRN Reason: Anxiety Lisinopril (Lisinopril 20 Mg Tablet) 20 mg PO DAILY [facility]; Protocol Last Admin: 04/21/23 08:32 Dose: 20 mg Magnesium Hydroxide (Milk Of Magnesia 30 Ml Oral.Susp) 30 ml PO DAILY PRN PRN Reason: Constipation Olanzapine (Olanzapine 10 Mg Tablet) 10 mg PO BEDTIME [facility] Last Admin: 04/21/23 21:30 Dose: 10 mg Trazodone HCl (Trazodone Hcl 50 Mg Tablet) 50 mg PO BEDTIME MRX1 PRN PRN Reason: Insomnia Last Admin: 04/21/23 21:30 Dose: 50 mg Trolamine Salicylate (Trolamine Salicylate 10 % Cream 85 Gm Tube) 1 appl TOPICAL QID PRN PRN Reason: Pain, Mild (Pain Scale 1-3) Last Admin: 04/19/23 21:51 Dose: 1 appl Allergies Allergies Allergy/AdvReac Type Severity Reaction Status Date / Time No Known Allergies Allergy Verified 04/13/23 22:46 Assessment & Plan Assessment & Plan (1) Psychosis: Status: Acute Code(s): F29 - Unspecified psychosis not due to a substance or known physiological condition Assessment and Plan: 04/15/23 Continue current regime and plan of care 04/16/23 Continue current regime and plan of care Plan Pt is a 72-year-old female with a PMH significant for?HTN, HLD, fibromyalgia, arthritis, and lupus who is admitted to [facility] for [facility]even with acute psychosis with paranoia, flight ideas, and disorganized thoughts after being evicted from her assisted care facility for behavioral disturbances. Medical consult for admission H&P. Mood disorder Plan as per psychiatry HTN Continue home meds HLD Continue home meds Lupus Pt apparently recently diagnosed, not yet on meds Should follow up outpatient with PCP to establish care Plan 1. Gather collateral information. 2. Continue with same treatment. 3. We are going to try to find proper placement for her since she has lost her assisted living facility Reason for continued inpatient stay Substantial Risk for: inability to function, rapid decompensation and med/psych decompensation Time Spent With Patient Time: Total time managing care of this patient today __20__ minutes.
[2023-04-22] MEDS: Acetaminophen 325 MG TABLET 650 MG PO ×3 (11:02→23:17)
[2023-04-22] MEDS: Trolamine Salicylate 10 % Cream 85 GM TUBE 1 APPL TOPICAL ×3 (11:02→21:08)
[2023-04-22 18:00] VITALS: BP 146/66; PULSE 78; RESP 16; TEMP 36.6; O2SAT 98
[2023-04-22] MEDS: traZODone HCL 50 MG TABLET PO ×2 (21:08→21:11)
[2023-04-22] MEDS: OLANZapine 10 MG TABLET PO (21:08)
[2023-04-23 08:12] VITALS: BP 126/60; PULSE 87; RESP 18; TEMP 36.4; O2SAT 98
[2023-04-23] MEDS: lisinopriL 20 MG TABLET PO (08:15)
[2023-04-23] MEDS: Ibuprofen 400 MG TABLET PO ×2 (08:15→18:03)
[2023-04-23] MEDS: Atorvastatin Calcium 20 MG TABLET PO (08:16)
--- NOTE | 2023-04-23 10:08 | HO.PSYCHPN ---
Subjective Subjective Date of Service: 04/23/23 Reason For Visit: F33.2 bipolar disorder with psychotic features Subjective Notes: Conditional Voluntary Interim History: The nursing staff reported the patient remains hyperverbal, intrusive at times but easily redirectable. On interview the patient demanded to see the psychologist social explained her that over the weekend will have a regular psychologist social since all the facilities are closed. Still hypomanic but no safety concerns to self or others Mental Status Exam Mental Status Exam Patient Appearance: Well Grooomed and Appropriate Patient Orientation: Person and Situation Level of Consciousness: Awake and Appropriate Patient Behavior: Guarded and Passive Mood Description: Calm Affect Description: Constricted Patient Cognition Impaired: Yes Ability to Follow Directions: Fair Speech Pattern: Rapid Hallucinations: None Delusions: Grandiose Thought Process: Racing and Distracted Thought Content: positive for [place] and positive for [place] Judgement: Fair Diagnostics Vital Signs (24Hr): Vital Signs - 24 hr 04/22/23 18:00 04/23/23 08:12 Temperature 97.8 F 97.6 F Pulse Rate 78 87 Respiratory Rate 16 18 Blood Pressure 146/66 H 126/60 Pulse Oximetry 98 98 Oxygen Delivery Method Room Air Room Air BMI result Body Mass Index 28.3 Labs 04/14/23 08:05 Medications Medications Current Medications Al Hydroxide/Mg Hydroxide (Magnesium Hydrox/Alum Hydrox 30 Ml Oral.Susp) 30 ml PO Q6H PRN PRN Reason: Heartburn/Nausea Atorvastatin Calcium (Atorvastatin Calcium 20 Mg Tablet) 20 mg PO DAILY [facility] Last Admin: 04/23/23 08:16 Dose: 20 mg Calcium Carbonate (Calcium Carbonate 500 Mg Tablet) 500 mg PO Q4H PRN PRN Reason: Heartburn Clonazepam (Clonazepam 0.5 Mg Tablet) 0.5 mg PO BID PRN PRN Reason: Anxiety Ibuprofen (Ibuprofen 400 Mg Tablet) 400 mg PO Q6H PRN PRN Reason: Pain, Moderate(Pain Scale 4-6) Last Admin: 04/23/23 08:15 Dose: 400 mg Lisinopril (Lisinopril 20 Mg Tablet) 20 mg PO DAILY [facility]; Protocol Last Admin: 04/23/23 08:15 Dose: 20 mg Magnesium Hydroxide (Milk Of Magnesia 30 Ml Oral.Susp) 30 ml PO DAILY PRN PRN Reason: Constipation Olanzapine (Olanzapine 10 Mg Tablet) 10 mg PO BEDTIME [facility] Last Admin: 04/22/23 21:08 Dose: 10 mg Trazodone HCl (Trazodone Hcl 50 Mg Tablet) 50 mg PO BEDTIME MRX1 PRN PRN Reason: Insomnia Last Admin: 04/22/23 21:11 Dose: 50 mg Trolamine Salicylate (Trolamine Salicylate 10 % Cream 85 Gm Tube) 1 appl TOPICAL QID PRN PRN Reason: Pain, Mild (Pain Scale 1-3) Last Admin: 04/22/23 21:08 Dose: 1 appl Allergies Allergies Allergy/AdvReac Type Severity Reaction Status Date / Time No Known Allergies Allergy Verified 04/13/23 22:46 Assessment & Plan Assessment & Plan (1) Psychosis: Status: Acute Code(s): F29 - Unspecified psychosis not due to a substance or known physiological condition Assessment and Plan: 04/15/23 Continue current regime and plan of care 04/16/23 Continue current regime and plan of care Plan Pt is a 72-year-old female with a PMH significant for?HTN, HLD, fibromyalgia, arthritis, and lupus who is admitted to [facility] for steven with acute psychosis with paranoia, flight ideas, and disorganized thoughts after being evicted from her assisted care facility for behavioral disturbances. Medical consult for admission H&P. Mood disorder Plan as per psychiatry HTN Continue home meds HLD Continue home meds Lupus Pt apparently recently diagnosed, not yet on meds Should follow up outpatient with PCP to establish care Plan 1. Gather collateral information. 2. Continue with same treatment. 3. We are going to try to find proper placement for her since she has lost her assisted living facility Reason for continued inpatient stay Substantial Risk for: inability to function, rapid decompensation and med/psych decompensation Time Spent With Patient Time: Total time managing care of this patient today _20___ minutes.
[2023-04-23 18:00] VITALS: BP 147/67; PULSE 84; RESP 18; TEMP 36.9; O2SAT 98
[2023-04-23] MEDS: traZODone HCL 50 MG TABLET PO ×2 (20:17→21:57)
[2023-04-23] MEDS: OLANZapine 10 MG TABLET PO (20:17)
[2023-04-23] MEDS: Trolamine Salicylate 10 % Cream 85 GM TUBE 1 APPL TOPICAL (20:17)
[2023-04-24 08:42] VITALS: BP 147/71; PULSE 75; RESP 16; TEMP 36.9; O2SAT 98
[2023-04-24] MEDS: lisinopriL 20 MG TABLET PO (08:43)
[2023-04-24] MEDS: Atorvastatin Calcium 20 MG TABLET PO (08:43)
[2023-04-24] MEDS: Ibuprofen 400 MG TABLET PO ×2 (08:49→19:38)
--- NOTE | 2023-04-24 14:22 | P.PNPSI_ITS ---
Subjective Subjective Date of Service: 04/24/23 Reason For Visit: F33.2 bipolar disorder with psychotic features Subjective Notes: Conditional Voluntary Interim History: The nursing staff reported that she needed to target so trazodone last night. She remains delusional but less obsessive than before. She has been eating sleeping well. The high school social studies tutor reported that [facility] will assess her pretty soon. On interview the patient was upset that I redirect her about her limited options for discharge. Mental Status Exam Mental Status Exam Patient Appearance: Well Grooomed and Appropriate Patient Orientation: Person and Situation Level of Consciousness: Awake and Appropriate Patient Behavior: Guarded and Passive Mood Description: Withdrawn Affect Description: Constricted Patient Cognition Impaired: Yes Ability to Follow Directions: Fair Speech Pattern: Clear and Rapid Hallucinations: None Delusions: Grandiose Thought Process: Racing Thought Content: positive for [place] and positive for [place]ed Judgement: Fair Diagnostics Vital Signs (24Hr): Vital Signs - 24 hr 04/23/23 18:00 04/24/23 08:42 Temperature 98.5 F 98.4 F Pulse Rate 84 75 Respiratory Rate 18 16 Blood Pressure 147/67 H 147/71 H Pulse Oximetry 98 98 Oxygen Delivery Method Room Air Room Air BMI result Body Mass Index 28.3 Labs 04/14/23 08:05 Medications Medications Current Medications Al Hydroxide/Mg Hydroxide (Magnesium Hydrox/Alum Hydrox 30 Ml Oral.Susp) 30 ml PO Q6H PRN PRN Reason: Heartburn/Nausea Atorvastatin Calcium (Atorvastatin Calcium 20 Mg Tablet) 20 mg PO DAILY [facility] Last Admin: 04/24/23 08:43 Dose: 20 mg Calcium Carbonate (Calcium Carbonate 500 Mg Tablet) 500 mg PO Q4H PRN PRN Reason: Heartburn Clonazepam (Clonazepam 0.5 Mg Tablet) 0.5 mg PO BID PRN PRN Reason: Anxiety Ibuprofen (Ibuprofen 400 Mg Tablet) 400 mg PO Q6H PRN PRN Reason: Pain, Moderate(Pain Scale 4-6) Last Admin: 04/24/23 08:49 Dose: 400 mg Lisinopril (Lisinopril 20 Mg Tablet) 20 mg PO DAILY [facility]; Protocol Last Admin: 04/24/23 08:43 Dose: 20 mg Magnesium Hydroxide (Milk Of Magnesia 30 Ml Oral.Susp) 30 ml PO DAILY PRN PRN Reason: Constipation Olanzapine (Olanzapine 10 Mg Tablet) 10 mg PO BEDTIME [facility] Last Admin: 04/23/23 20:17 Dose: 10 mg Trazodone HCl (Trazodone Hcl 50 Mg Tablet) 50 mg PO BEDTIME MRX1 PRN PRN Reason: Insomnia Last Admin: 04/23/23 21:57 Dose: 50 mg Trolamine Salicylate (Trolamine Salicylate 10 % Cream 85 Gm Tube) 1 appl TOPICAL QID PRN PRN Reason: Pain, Mild (Pain Scale 1-3) Last Admin: 04/23/23 20:17 Dose: 1 appl Allergies Allergies Allergy/AdvReac Type Severity Reaction Status Date / Time No Known Allergies Allergy Verified 04/13/23 22:46 Assessment & Plan Assessment & Plan (1) Psychosis: Status: Acute Code(s): F29 - Unspecified psychosis not due to a substance or known physiological condition Assessment and Plan: 04/15/23 Continue current regime and plan of care 04/16/23 Continue current regime and plan of care Plan Pt is a 72-year-old female with a PMH significant for?HTN, HLD, fibromyalgia, arthritis, and lupus who is admitted to [facility] for steven with acute psychosis with paranoia, flight ideas, and disorganized thoughts after being evicted from her assisted care facility for behavioral disturbances. Medical consult for admission H&P. Mood disorder Plan as per psychiatry HTN Continue home meds HLD Continue home meds Lupus Pt apparently recently diagnosed, not yet on meds Should follow up outpatient with PCP to establish care Plan 1. Gather collateral information. 2. Continue with same treatment. 3. We are going to try to find proper placement for her since she has lost her assisted living facility Reason for continued inpatient stay Substantial Risk for: inability to function, rapid decompensation and med/psych decompensation Time Spent With Patient Time: Total time managing care of this patient today __20__ minutes.
[2023-04-24 18:00] VITALS: BP 151/75; PULSE 76; RESP 16; TEMP 36.3; O2SAT 96
[2023-04-24] MEDS: Trolamine Salicylate 10 % Cream 85 GM TUBE 1 APPL TOPICAL (19:37)
[2023-04-24] MEDS: OLANZapine 10 MG TABLET PO (21:59)
[2023-04-24] MEDS: traZODone HCL 50 MG TABLET PO (21:59)
[2023-04-25] MEDS: traZODone HCL 50 MG TABLET PO (02:19)
[2023-04-25 08:12] VITALS: BP 146/74; PULSE 80; RESP 16; TEMP 37.2; O2SAT 97
[2023-04-25] MEDS: Atorvastatin Calcium 20 MG TABLET PO (08:13)
[2023-04-25] MEDS: lisinopriL 20 MG TABLET PO (08:13)
[2023-04-25] MEDS: Ibuprofen 400 MG TABLET PO ×2 (11:52→20:18)
--- NOTE | 2023-04-25 12:49 | HO.PSYCHPN ---
Subjective Subjective Date of Service: 04/25/23 Reason For Visit: F33.2 bipolar disorder with psychotic features Subjective Notes: Conditional Voluntary Interim History: The nursing staff reported the patient still grandiose and delusional but looks more withdrawn and less perseverative. She had a flat affect today since she has realized that she is technically homeless. The social media designer reported that she will contact the counseling case manager in [place], it seems the patient has a [place] and he will be easier for her to find placement. On interview the patient denies new symptoms still mildly grandiose but easily redirectable. Mental Status Exam Mental Status Exam Patient Appearance: Appropriate Patient Orientation: Person and Situation Level of Consciousness: Awake and Appropriate Patient Behavior: Guarded and Passive Mood Description: Withdrawn Affect Description: Constricted Patient Cognition Impaired: Yes Ability to Follow Directions: Good Speech Pattern: Clear Hallucinations: None Delusions: Grandiose and Ideas of Reference Thought Process: Racing Thought Content: positive for [place] Judgement: Fair Diagnostics Vital Signs (24Hr): Vital Signs - 24 hr 04/24/23 18:00 04/25/23 08:12 Temperature 97.4 F 98.9 F Pulse Rate 76 80 Respiratory Rate 16 16 Blood Pressure 151/75 H 146/74 H Pulse Oximetry 96 97 Oxygen Delivery Method Room Air Room Air BMI result Body Mass Index 28.3 Labs 04/14/23 08:05 Medications Medications Current Medications Al Hydroxide/Mg Hydroxide (Magnesium Hydrox/Alum Hydrox 30 Ml Oral.Susp) 30 ml PO Q6H PRN PRN Reason: Heartburn/Nausea Atorvastatin Calcium (Atorvastatin Calcium 20 Mg Tablet) 20 mg PO DAILY [facility] Last Admin: 04/25/23 08:13 Dose: 20 mg Calcium Carbonate (Calcium Carbonate 500 Mg Tablet) 500 mg PO Q4H PRN PRN Reason: Heartburn Clonazepam (Clonazepam 0.5 Mg Tablet) 0.5 mg PO BID PRN PRN Reason: Anxiety Ibuprofen (Ibuprofen 400 Mg Tablet) 400 mg PO Q6H PRN PRN Reason: Pain, Moderate(Pain Scale 4-6) Last Admin: 04/25/23 11:52 Dose: 400 mg Lisinopril (Lisinopril 20 Mg Tablet) 20 mg PO DAILY [facility]; Protocol Last Admin: 04/25/23 08:13 Dose: 20 mg Magnesium Hydroxide (Milk Of Magnesia 30 Ml Oral.Susp) 30 ml PO DAILY PRN PRN Reason: Constipation Olanzapine (Olanzapine 10 Mg Tablet) 10 mg PO BEDTIME [facility] Last Admin: 04/24/23 21:59 Dose: 10 mg Trazodone HCl (Trazodone Hcl 50 Mg Tablet) 50 mg PO BEDTIME MRX1 PRN PRN Reason: Insomnia Last Admin: 04/25/23 02:19 Dose: 50 mg Trolamine Salicylate (Trolamine Salicylate 10 % Cream 85 Gm Tube) 1 appl TOPICAL QID PRN PRN Reason: Pain, Mild (Pain Scale 1-3) Last Admin: 04/24/23 19:37 Dose: 1 appl Allergies Allergies Allergy/AdvReac Type Severity Reaction Status Date / Time No Known Allergies Allergy Verified 04/13/23 22:46 Assessment & Plan Assessment & Plan (1) Psychosis: Status: Acute Code(s): F29 - Unspecified psychosis not due to a substance or known physiological condition Assessment and Plan: 04/15/23 Continue current regime and plan of care 04/16/23 Continue current regime and plan of care Plan Pt is a 72-year-old female with a PMH significant for?HTN, HLD, fibromyalgia, arthritis, and lupus who is admitted to [facility] for steven with acute psychosis with paranoia, flight ideas, and disorganized thoughts after being evicted from her assisted care facility for behavioral disturbances. Medical consult for admission H&P. Mood disorder Plan as per psychiatry HTN Continue home meds HLD Continue home meds Lupus Pt apparently recently diagnosed, not yet on meds Should follow up outpatient with PCP to establish care Plan 1. Gather collateral information. 2. Continue with same treatment. 3. We are going to try to find proper placement for her since she has lost her assisted living facility Reason for continued inpatient stay Substantial Risk for: inability to function, rapid decompensation and med/psych decompensation Time Spent With Patient Time: Total time managing care of this patient today _20___ minutes.
[2023-04-25 19:40] VITALS: BP 135/64; PULSE 84; RESP 18; TEMP 36; O2SAT 97
[2023-04-25] MEDS: OLANZapine 10 MG TABLET PO (20:18)
[2023-04-26 08:20] VITALS: BP 137/66; PULSE 77; RESP 18; TEMP 36.3; O2SAT 97
[2023-04-26] MEDS: Atorvastatin Calcium 20 MG TABLET PO (08:39)
[2023-04-26] MEDS: lisinopriL 20 MG TABLET PO (08:39)
[2023-04-26] MEDS: Ibuprofen 400 MG TABLET PO (10:34)
--- NOTE | 2023-04-26 14:21 | HO.PSYCHPN ---
Subjective Subjective Date of Service: 04/26/23 Reason For Visit: F33.2 bipolar disorder with psychotic features Subjective Notes: Conditional Voluntary Interim History: The nursing staff reported the patient remains hyperverbal and perseverative why she was evicted from her home, slightly hypomanic but more redirectable. The social media editor reported that she has contact the outpatient case manager of [place] and they are going to find her housing pretty soon most likely this Monday. On interview the patient denies new symptoms I explained her about her possible discharge plan and she was very happy. No safety concerns Mental Status Exam Mental Status Exam Patient Appearance: Well Grooomed and Appropriate Patient Orientation: Person and Situation Level of Consciousness: Awake and Appropriate Patient Behavior: Guarded and Passive Mood Description: Calm Affect Description: Constricted Patient Cognition Impaired: Yes Ability to Follow Directions: Good Speech Pattern: Clear Hallucinations: None Delusions: Grandiose Thought Process: Racing Thought Content: positive for [place] and positive for [place] Judgement: Fair Diagnostics Vital Signs (24Hr): Vital Signs - 24 hr 04/25/23 19:40 04/26/23 08:20 Temperature 96.8 F 97.4 F Pulse Rate 84 77 Respiratory Rate 18 18 Blood Pressure 135/64 137/66 Pulse Oximetry 97 97 Oxygen Delivery Method Room Air Room Air BMI result Body Mass Index 28.3 Labs 04/14/23 08:05 Medications Medications Current Medications Al Hydroxide/Mg Hydroxide (Magnesium Hydrox/Alum Hydrox 30 Ml Oral.Susp) 30 ml PO Q6H PRN PRN Reason: Heartburn/Nausea Atorvastatin Calcium (Atorvastatin Calcium 20 Mg Tablet) 20 mg PO DAILY [facility] Last Admin: 04/26/23 08:39 Dose: 20 mg Calcium Carbonate (Calcium Carbonate 500 Mg Tablet) 500 mg PO Q4H PRN PRN Reason: Heartburn Clonazepam (Clonazepam 0.5 Mg Tablet) 0.5 mg PO BID PRN PRN Reason: Anxiety Ibuprofen (Ibuprofen 400 Mg Tablet) 400 mg PO Q6H PRN PRN Reason: Pain, Moderate(Pain Scale 4-6) Last Admin: 04/26/23 10:34 Dose: 400 mg Lisinopril (Lisinopril 20 Mg Tablet) 20 mg PO DAILY [facility]; Protocol Last Admin: 04/26/23 08:39 Dose: 20 mg Magnesium Hydroxide (Milk Of Magnesia 30 Ml Oral.Susp) 30 ml PO DAILY PRN PRN Reason: Constipation Olanzapine (Olanzapine 10 Mg Tablet) 10 mg PO BEDTIME [facility] Last Admin: 04/25/23 20:18 Dose: 10 mg Trazodone HCl (Trazodone Hcl 50 Mg Tablet) 50 mg PO BEDTIME MRX1 PRN PRN Reason: Insomnia Last Admin: 04/25/23 02:19 Dose: 50 mg Trolamine Salicylate (Trolamine Salicylate 10 % Cream 85 Gm Tube) 1 appl TOPICAL QID PRN PRN Reason: Pain, Mild (Pain Scale 1-3) Last Admin: 04/24/23 19:37 Dose: 1 appl Allergies Allergies Allergy/AdvReac Type Severity Reaction Status Date / Time No Known Allergies Allergy Verified 04/13/23 22:46 Assessment & Plan Assessment & Plan (1) Psychosis: Status: Acute Code(s): F29 - Unspecified psychosis not due to a substance or known physiological condition Assessment and Plan: 04/15/23 Continue current regime and plan of care 04/16/23 Continue current regime and plan of care Plan Pt is a 72-year-old female with a PMH significant for?HTN, HLD, fibromyalgia, arthritis, and lupus who is admitted to [facility] for steven with acute psychosis with paranoia, flight ideas, and disorganized thoughts after being evicted from her assisted care facility for behavioral disturbances. Medical consult for admission H&P. Mood disorder Plan as per psychiatry HTN Continue home meds HLD Continue home meds Lupus Pt apparently recently diagnosed, not yet on meds Should follow up outpatient with PCP to establish care Plan 1. Gather collateral information. 2. Continue with same treatment. 3. We are going to try to find proper placement for her since she has lost her assisted living facility Reason for continued inpatient stay Substantial Risk for: inability to function, rapid decompensation and med/psych decompensation Time Spent With Patient Time: Total time managing care of this patient today __20__ minutes.
[2023-04-26 18:00] VITALS: BP 184/80; PULSE 94; TEMP 36.6; O2SAT 96
[2023-04-26] MEDS: OLANZapine 10 MG TABLET PO (20:36)
[2023-04-26] MEDS: traZODone HCL 50 MG TABLET PO ×2 (20:37→20:38)
[2023-04-26] MEDS: clonazePAM 0.5 MG TABLET PO (22:14)
[2023-04-27 07:00] VITALS: BMI 28.5
[2023-04-27 08:08] VITALS: BP 134/63; PULSE 99; RESP 16; TEMP 36.6; O2SAT 96
[2023-04-27] MEDS: lisinopriL 20 MG TABLET PO (08:09)
[2023-04-27] MEDS: Atorvastatin Calcium 20 MG TABLET PO (08:09)
[2023-04-27] MEDS: Ibuprofen 400 MG TABLET PO ×2 (11:31→18:18)
--- NOTE | 2023-04-27 13:08 | HO.PSYCHPN ---
Subjective Subjective Date of Service: 04/27/23 Reason For Visit: F33.2 bipolar disorder with psychotic features Interim History: Pt reports she is here because housing wanted to prevent her from attending court hearing for eviction. Pt reports having a lot of evidence to expose their lies. Pt denies SI/HI. She reports she hopes to leave soon. She is taking medications as prescribed. She has been visible on the unit. Per nursing, some difficulty sleeping with trazodone but did fall asleep with clonazepam. Review of Systems Review of Systems Pt has no acute medical complaints at this time. Yes all other systems are reviewed and are negative Mental Status Exam Mental Status Exam Patient Appearance: Well Grooomed and Appropriate Patient Orientation: Person and Situation Level of Consciousness: Awake and Appropriate Patient Behavior: Guarded and Passive Mood Description: Calm Affect Description: Constricted Patient Cognition Impaired: Yes Ability to Follow Directions: Good Speech Pattern: Clear Memory Description: Episodic Impaired Diagnostics Vital Signs (24Hr): Vital Signs - 24 hr 04/26/23 18:00 04/27/23 08:08 Temperature 98 F 97.9 F Pulse Rate 94 99 Respiratory Rate 16 Blood Pressure 184/80 H 134/63 Pulse Oximetry 96 96 Oxygen Delivery Method Room Air Room Air BMI result Body Mass Index 28.3 Labs 04/14/23 08:05 Medications Medications Current Medications Al Hydroxide/Mg Hydroxide (Magnesium Hydrox/Alum Hydrox 30 Ml Oral.Susp) 30 ml PO Q6H PRN PRN Reason: Heartburn/Nausea Atorvastatin Calcium (Atorvastatin Calcium 20 Mg Tablet) 20 mg PO DAILY [facility] Last Admin: 04/27/23 08:09 Dose: 20 mg Calcium Carbonate (Calcium Carbonate 500 Mg Tablet) 500 mg PO Q4H PRN PRN Reason: Heartburn Clonazepam (Clonazepam 0.5 Mg Tablet) 0.5 mg PO BID PRN PRN Reason: Anxiety Last Admin: 04/26/23 22:14 Dose: 0.5 mg Ibuprofen (Ibuprofen 400 Mg Tablet) 400 mg PO Q6H PRN PRN Reason: Pain, Moderate(Pain Scale 4-6) Last Admin: 04/27/23 11:31 Dose: 400 mg Lisinopril (Lisinopril 20 Mg Tablet) 20 mg PO DAILY [facility]; Protocol Last Admin: 04/27/23 08:09 Dose: 20 mg Magnesium Hydroxide (Milk Of Magnesia 30 Ml Oral.Susp) 30 ml PO DAILY PRN PRN Reason: Constipation Olanzapine (Olanzapine 10 Mg Tablet) 10 mg PO BEDTIME DIANA Last Admin: 04/26/23 20:36 Dose: 10 mg Trazodone HCl (Trazodone Hcl 50 Mg Tablet) 50 mg PO BEDTIME PRN PRN Reason: Insomnia Trolamine Salicylate (Trolamine Salicylate 10 % Cream 85 Gm Tube) 1 appl TOPICAL QID PRN PRN Reason: Pain, Mild (Pain Scale 1-3) Last Admin: 04/24/23 19:37 Dose: 1 appl Allergies Allergies Allergy/AdvReac Type Severity Reaction Status Date / Time No Known Allergies Allergy Verified 04/13/23 22:46 Assessment & Plan Assessment & Plan (1) Psychosis: Status: Acute Code(s): F29 - Unspecified psychosis not due to a substance or known physiological condition Assessment and Plan: 04/15/23 Continue current regime and plan of care 04/16/23 Continue current regime and plan of care Plan Pt is a 72-year-old female with a PMH significant for?HTN, HLD, fibromyalgia, arthritis, and lupus who is admitted to [facility] for steven with acute psychosis with paranoia, flight ideas, and disorganized thoughts after being evicted from her assisted care facility for behavioral disturbances. Medical consult for admission H&P. Mood disorder Plan as per psychiatry HTN Continue home meds HLD Continue home meds Lupus Pt apparently recently diagnosed, not yet on meds Should follow up outpatient with PCP to establish care Plan 1. Gather collateral information. 2. Continue with same treatment. 3. We are going to try to find proper placement for her since she has lost her assisted living facility 04/27 continue tx. Reason for continued inpatient stay Substantial Risk for: inability to function Time Spent With Patient Time: Total time managing care of this patient today ____ minutes.
[2023-04-27] MEDS: Trolamine Salicylate 10 % Cream 85 GM TUBE 1 APPL TOPICAL (17:30)
[2023-04-27 18:00] VITALS: BP 153/79; PULSE 90; TEMP 36.9; O2SAT 96
[2023-04-27] MEDS: OLANZapine 10 MG TABLET PO (20:55)
[2023-04-27] MEDS: traZODone HCL 50 MG TABLET PO (20:55)
[2023-04-27] MEDS: clonazePAM 0.5 MG TABLET PO (20:56)
--- NOTE | 2023-04-28 07:25 | P.DS_ITS ---
DS: Providers Provider Date of Service: 04/28/23 Date of admission: 04/13/23 21:35 Date of discharge: 04/28/23 Primary care physician: Unknown Physician Consults: 04/13/23 22:46 Consult to Hospitalist Routine Comment: Consulting Provider: Hospitalist Reason For Exam: Direct admission Attending physician on discharge: Jhon Nunn DS: Diagnosis Discharge Diagnosis (1) Psychosis: Status: Acute DS: Medications Discharge Medications Home Medications: Home Medications Medication Instructions Recorded Confirmed acetaminophen 650 mg tablet 650 mg PO Q6H PRN MILD PAIN,FEVER 04/14/23 04/14/23 atorvastatin 20 mg tablet 20 mg PO DAILY 04/14/23 04/14/23 calcium carbonate 500 mg calcium 500 mg PO Q4-6H PRN Heartburn 04/14/23 04/14/23 (1,250 mg) chewable tablet cephalexin 500 mg capsule 500 mg PO BID 04/14/23 04/14/23 clonazepam 0.5 mg tablet 0.5 mg PO BID PRN Anxiety 04/14/23 04/14/23 diclofenac sodium 1 % topical gel 2 g topical QID 04/14/23 04/14/23 hydroxyzine HCl 50 mg tablet 50 mg PO BEDTIME PRN Itching 04/14/23 04/14/23 lisinopril 20 mg tablet 20 mg PO DAILY 04/14/23 04/14/23 magnesium gluconate 27 mg 27 mg PO DAILY 04/14/23 04/14/23 magnesium (500 mg) tablet [id number]-[id number]-rrbvg acid 0.4 1 tab PO DAILY 04/14/23 04/14/23 mg-lycopene 300 mcg-lutein 250 mcg tablet (Cerovite Senior) olanzapine 10 mg disintegrating 10 mg PO BEDTIME 04/14/23 04/14/23 tablet olanzapine 5 mg disintegrating 5 mg PO BID PRN Anxiety 04/14/23 04/14/23 tablet Mental Status Exam Mental Status Exam Patient Appearance: Well Grooomed and Appropriate Patient Orientation: Person, Place and Situation Level of Consciousness: Awake and Appropriate Patient Behavior: Guarded and Passive Mood Description: Calm Affect Description: Constricted Patient Cognition Impaired: Yes Ability to Follow Directions: Good Speech Pattern: Clear Hallucinations: None Delusions: Not Present Thought Process: Linear Thought Content: positive for Clark and positive for Circumstantial Judgement: Fair DS: Summary Hospital Course Hospital Course: The patient is a 72-year-old female, referred from the emergency room of the hospital out of our catchment area since she was evicted from her home since she was belligerent and hostile towards the staff of the facility.? On the emergency room it was noticed that she had flight of ideas, grandiose delusions and fast speech, she was [employer] and transferring to this facility for psychiatric stabilization.? Please see the HPI of the admission note for further details.? On the intake interview, it was clear that the patient had signs and symptoms of steven and she was continue Zyprexa that he was already started in the other hospital.? She was fully compliant with treatment and her manic symptoms lowered.? 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 She was perseverative on her statements, even though, there were no evidence of safety concerns.? The social work specialist contact the facility and she was evicted and a montessori lead teacher talk to her.? Also she had a [employer] voucher and she was contact the case technician of [employer] and they found her another apartment.? The patient did not have safety concerns even though that she was grandiose with mild fast speech, the patient was able to do her own ADL less and keep herself safe.? Since there were no safety concerns the patient was discharged to her new home. Time spent discussing smoking cessation with patient: 3 to 10 minutes Status at Discharge Functional status at discharge: independent ambulation Overall status at discharge: patient is back to baseline Time Spent with Patient Time attestation: Total time managing care of this patient today __30__ minutes. Time spent: Less than 30 minutes Discharge Plan Discharge Anticipated Discharge Date/Time: 04/28/23 10:00 Patient Disposition: Home, Self-Care Discharge Diagnosis: Mood disorder Cluster B traits personality disorder Referrals: Dr. Zion Skinner Jr [Other] - 05/10/23 10:00 am (Appointment: 05/10/2023 @ 10am ) Dr. Yovanny Brown - Psychiatrist [Other] - 1 Week (Appointment: 05/02/2023 @ 10am - In Person Patient to arrive 15 minutes prior to scheduled time due to paper work. ) Physician,Tanisha J [Primary Care Provider] - 1 Week Discharge Medications: New atorvastatin 20 mg Tablet 20 mg PO DAILY 30 Days Qty: 30 0RF trazodone 50 mg Tablet 50 mg PO BEDTIME PRN (Reason: Insomnia) 30 Days Qty: 30 0RF lisinopril 20 mg Tablet 20 mg PO DAILY 30 Days Qty: 30 0RF Protocol: Hold for SBP< HOLD for SBP < : 90 clonazepam 0.5 mg Tablet 0.5 mg PO BID PRN (Reason: Anxiety) 30 Days Qty: 60 0RF olanzapine 10 mg Tablet 10 mg PO BEDTIME 30 Days Qty: 30 0RF ibuprofen 400 mg Tablet 400 mg PO Q6H PRN (Reason: Pain, Moderate(Pain Scale 4-6)) 30 Days Qty: 60 0RF trolamine salicylate [Arthricream] 10 % Cream 1 appl topical QID PRN (Reason: Pain, Mild (Pain Scale 1-3)) 30 Days Qty: 1 0RF Continued calcium carbonate 500 mg calcium (1,250 mg) Tablet,Chewable 500 mg PO Q4-6H PRN (Reason: Heartburn) Qty: 90 0RF Discontinued atorvastatin 20 mg Tablet 20 mg PO DAILY clonazepam 0.5 mg Tablet 0.5 mg PO BID PRN (Reason: Anxiety) olanzapine 10 mg Tablet,Disintegrating 10 mg PO BEDTIME olanzapine 5 mg Tablet,Disintegrating 5 mg PO BID PRN (Reason: Anxiety) Cerovite Senior 0.4 mg-300 mcg- 250 mcg Tablet 1 tab PO DAILY diclofenac sodium 1 % Gel 2 g TOPICAL QID Rx Instructions: apply to single elbow, wrist or hand; for hand includes palm/fingers/back of hand lisinopril 20 mg Tablet 20 mg PO DAILY hydroxyzine HCl 50 mg Tablet 50 mg PO BEDTIME PRN (Reason: Itching) acetaminophen 650 mg Tablet 650 mg PO Q6H PRN (Reason: MILD PAIN,FEVER) cephalexin 500 mg Capsule 500 mg PO BID magnesium gluconate 27 mg magnesium (500 mg) Tablet 27 mg PO DAILY Discharge Orders: Discharge Order (Routine); Ordered 04/28/23 Ordered By: Jhon Nunn Diet: Advance to usual diet Activity on Discharge: As tolerated Stand Alone Forms: Patient Portal Discharge page Care Plan Goals: Care plan goals achieved in this admission. Health Concerns: Continue treatment with outpatient providers. Plan of Treatment: Continue treatment with outpatient providers as per discharge planning from social work specialist. Assessment: Elderly female with a past history of mood disorder admitted for manic symptoms, ill elicited by racing thoughts and grandiose delusions. She was stabilized on Zyprexa with no side effects. No safety concerns ready for discharge in the community.
[2023-04-28 07:30] VITALS: BP 136/71; PULSE 76; RESP 16; TEMP 36; O2SAT 97
[2023-04-28] MEDS: lisinopriL 20 MG TABLET PO (07:59)
[2023-04-28] MEDS: Atorvastatin Calcium 20 MG TABLET PO (07:59)
[2023-04-28] MEDS: Ibuprofen 400 MG TABLET PO (08:07)
--- NOTE | 2023-04-28 11:02 | PC.NURSE ---
Patient aware of discharge. Reports ready to be discharged. Patient alert and oriented.Denies depression/anxiety. Pt denies S/I, H/I. Educated about her medications and appointments. Scripts given to patient. Discharged with belongings. Left unit at 10:10.
== END 2023-04-28 10:10 | disposition home or self-care (01) | DRG 885 ==
PROVIDERS: Admitting Provider Psychiatry & Neurology Psychiatry; Visit Provider Psychiatry & Neurology Psychiatry
DX: F33.2 Major depressive disorder, recurrent severe without psychotic features (principal); I10 Essential (primary) hypertension; E78.5 Hyperlipidemia, unspecified; M32.9 Systemic lupus erythematosus, unspecified; E11.9 Type 2 diabetes mellitus without complications; F03.90 Unspecified dementia, unspecified severity, without behavioral disturbance, psychotic disturbance, mood disturbance, and anxiety; Z59.02 Unsheltered homelessness; Z79.899 Other long term (current) drug therapy
CPT/HCPCS: 36415; 80053; 80061

== ENCOUNTER → 2023-04-13 21:35 | Outpatient (BNV) | payer MEDICARE, MEDICAID, SELFPAY | PROVIDERS: Admitting Provider Psychiatry & Neurology Psychiatry; Visit Provider Student in an Organized Health Care Education/Training Program | DX: Z02.89 Encounter for other administrative examinations (principal) | CPT/HCPCS: 99429 ==

== ENCOUNTER → 2023-04-13 21:35 | Outpatient (BNV) | payer MEDICARE, MEDICAID, SELFPAY | PROVIDERS: Admitting Provider Psychiatry & Neurology Psychiatry; Visit Provider Psychiatry & Neurology Psychiatry | DX: F29 Unspecified psychosis not due to a substance or known physiological condition (principal); F31.2 Bipolar disorder, current episode manic severe with psychotic features | CPT/HCPCS: 90792; 99231; 99232; 99238 ==